=== PATIENT | male | born 1960 | race Hispanic/Latino ===

== ENCOUNTER → 2019-06-16 | Outpatient (CLI) | payer OTHER ==
[~2019-06-16] MED LIST: IOHEXOL-350 50ML VIAL IV ONE
== END | disposition home or self-care (01) ==
LOC: RAH 14:25
PROVIDERS: ATTEND Internal Medicine
DX: G31.89 Other specified degenerative diseases of nervous system (principal); F29 Unspecified psychosis not due to a substance or known physiological condition; F06.34 Mood disorder due to known physiological condition with mixed features; R90.82 White matter disease, unspecified
CPT/HCPCS: 70450; Q9967